=== PATIENT | female | born 1965 | race Caucasian/White ===

== ENCOUNTER → 2016-05-01 | Outpatient (CLI) | payer BC ==
[~2016-05-01] MED LIST: ALBU1AER9 INH; BUPR150T7 PO; CHOLTAB3 PO; COEN100C28 PO; FEXO1TAB46 PO; MISCCAP80 PO; MULT-506 PO; PRLSR20 PO; SALI0.6517 NAE
--- NOTE | 2016-05-01 14:25 | MAMMOGRAPHY REPORT ---
UNILATERAL RIGHT DIGITAL DIAGNOSTIC MAMMOGRAM TOMOSYNTHESIS WITH CAD: 05/01/2016 CLINICAL HISTORY: Six-month follow-up of right breast calcifications. TECHNIQUE: Breast tomosynthesis in addition to standard 2D mammography was performed. Current study was also evaluated with a Computer Aided Detection (CAD) system. Right CC and MLO 2-D and tomosynt hesis images and spot magnification right cc and ML views were obtained. COMPARISON: Comparison is made to exams dated: 10/24/2015 mammogram, 11/01/2015 mammogram, 10/17/2014 m ammogram, and 06/08/2013 mammogram - [facility]. BREAST COMPOSITION: The tissue of the right breast is heterogeneously dense, which may obscure smal l masses. FINDINGS: Again noted is a small 2 mm cluster of calcifications in the right medial anterior breast . Compared to the prior exam the calcifications have coarsened and are forming a rim on the ML view . The calcifications are benign and most compatible with a developing dystrophic rim calcification. The remainder of the right breast is stable compared to prior exams, without suspicious masses, ca lcifications, or areas of architectural distortion noted. IMPRESSION: ACR BI-RADS CATEGORY 2: BENIGN The right breast calcifications are benign and compatible with a dystrophic rim calcification. Ther e is no mammographic evidence of malignancy. Return to annual mammogram screening schedule is recomm ended, due October. The patient has been verbally notified of the results. Approximately 10% of breast cancers are not detected with mammography. A negative mammographic repor t should not delay biopsy if a clinically suggestive mass is present. Melanie De La Cruz M.D. ah/:05/01/2016 11:16:59 [employer]: Marlen CHRISTIE(Bhumi)(M), [facility] letter sent: Normal 1/2 BI-RADS Code: ACR BI-RADS Category 2: Benign
== END | disposition home or self-care (01) ==
LOC: C.MAMM 10:53
PROVIDERS: ATTEND Obstetrics & Gynecology
DX: R92.1 Mammographic calcification found on diagnostic imaging of breast (principal)